=== PATIENT | female | born 1945 | race American Indian/Alaskan Native ===

== ENCOUNTER 2021-06-13 16:03 | Observation (INO) | payer MEDICARE ==
--- NOTE | 2021-06-13 16:21 | Emergency Department Report ---
HPI - General Chief Complaint: Neuro Symptoms/Deficit Time Seen by Provider: 06/13/21 16:05 - HPI HPI: This is a 75-year-old -[place] female presents to the emergency department via EMS with altered mental status that started about 1450. The vianey ent was eating food when suddenly she dropped her arm, became nonverbal, and had some bluish hue around her lips. Family immediately called EMS. Patient did not appear to have any other signs of respiratory distress and the bluish skin color changes have resolved. However the patient remains nonverbal. She had a normal Accu-Chek in route. She has a past medical history that includes previous CVA with residual left-sided deficits, MS causing her to be wheelchair- bound, hypertension, CHF, diabetes. She has not been given anything for her symptoms prior to presentation today. ED Review of Systems ROS: Stated complaint: ALTERED MENTAL STATUS Other details as noted in HPI Comment: Unobtainable due to pts medical conditions Physical Exam - Physical Exam Physical Exam: GENERAL: The patient is ill-appearing. HENT: Normocephalic. Atraumatic. Patient has moist mucous membranes. EYES: Extraocular motions are intact. Pupils equal reactive to light bilat erally. NECK: Supple. Trachea is midline. CHEST/LUNGS: Clear to auscultation. There is no respiratory distress noted. HEART/CARDIOVASCULAR: Regular. There is no tachycardia. There is no murmur. ABDOMEN: Abdomen is soft, nontender. Patient has normal bowel sounds. There is no abdominal distention. SKIN: Skin is warm and dry. NEURO: The patient is awake and cooperative. The patient follows commands. Patient is nonverbal. There is bilateral upper extremity pronator drift but she is able to keep the arms above the gurney. There is no movement against gravity to the bilateral lower extremities. MUSCULOSKELETAL: There is no tenderness or deformity. ED Medical Decision Making - Lab Data Result diagrams: 06/13/21 16:41 06/13/21 16:41 Lab Results 06/13/21 06/13/21 06/13/21 Range/Units 16:41 16:41 16:41 WBC 4.2 L (4.5-11.0) K/mm3 RBC 4.03 (3.65-5.03) M/mm3 Hgb 10.8 (10.1-14.3) gm/dl Hct 34.2 (30.3-42.9) % MCV 85 (79-97) fl MCH 27 L (28-32) pg MCHC 32 (30-34) % RDW 17.5 H (13.2-15.2) % Plt Count 188 (140-440) K/mm3 Lymph % (Auto) 33.6 (13.4-35.0) % [place] % (Auto) 8.6 H (0.0-7.3) % Eos % (Auto) 2.3 (0.0-4.3) % Baso % (Auto) 0.4 (0.0-1.8) % Lymph # (Auto) 1.4 (1.2-5.4) K/mm3 [place] # (Auto) 0.4 (0.0-0.8) K/mm3 Eos # (Auto) 0.1 (0.0-0.4) K/mm3 Baso # (Auto) 0.0 (0.0-0.1) K/mm3 Seg Neutrophils % 55.1 (40.0-70.0) % Seg Neutrophils # 2.3 (1.8-7.7) K/mm3 PT 18.4 H (12.2-14.9) Sec. INR 1.38 H (0.87-1.13) APTT 26.5 (24.2-36.6) Sec. Thrombin Time 18.2 (15.1-19.6) Sec. Sodium 137 (137-145) mmol/L Potassium 4.7 (3.6-5.0) mmol/L Chloride 104.4 (98-107) mmol/L Carbon Dioxide 24 (22-30) mmol/L Anion Gap 13 mmol/L BUN 13 (7-17) mg/dL Creatinine 0.7 (0.6-1.2) mg/dL Estimated GFR > 60 ml/min BUN/Creatinine Ratio 19 % Glucose 174 H (65-100) mg/dL Calcium 8.3 L (8.4-10.2) mg/dL Total Bilirubin 0.20 (0.1-1.2) mg/dL AST 38 (5-40) units/L ALT 16 (7-56) units/L Alkaline Phosphatase 38 (35-129) units/L Ammonia (25-60) umol/L Total Creatine Kinase 115 (30-135) units/L CK-MB (CK-2) 1.0 (0.0-4.0) ng/mL CK-MB (CK-2) Rel Index 0.8 (0-4) Troponin T < 0.010 (0.00-0.029) ng/mL Total Protein 6.1 L (6.3-8.2) g/dL Albumin 2.8 L (3.9-5) g/dL Albumin/Globulin Ratio 0.8 % Blood Type Antibody Screen 06/13/21 06/13/21 Range/Units 16:41 17:50 WBC (4.5-11.0) K/mm3 RBC (3.65-5.03) M/mm3 Hgb (10.1-14.3) gm/dl Hct (30.3-42.9) % MCV (79-97) fl MCH (28-32) pg MCHC (30-34) % RDW (13.2-15.2) % Plt Count (140-440) K/mm3 Lymph % (Auto) (13.4-35.0) % [place] % (Auto) (0.0-7.3) % Eos % (Auto) (0.0-4.3) % Baso % (Auto) (0.0-1.8) % Lymph # (Auto) (1.2-5.4) K/mm3 [place] # (Auto) (0.0-0.8) K/mm3 Eos # (Auto) (0.0-0.4) K/mm3 Baso # (Auto) (0.0-0.1) K/mm3 Seg Neutrophils % (40.0-70.0) % Seg Neutrophils # (1.8-7.7) K/mm3 PT (12.2-14.9) Sec. INR (0.87-1.13) APTT (24.2-36.6) Sec. Thrombin Time (15.1-19.6) Sec. Sodium (137-145) mmol/L Potassium (3.6-5.0) mmol/L Chloride (98-107) mmol/L Carbon Dioxide (22-30) mmol/L Anion Gap mmol/L BUN (7-17) mg/dL Creatinine (0.6-1.2) mg/dL Estimated GFR ml/min BUN/Creatinine Ratio % Glucose (65-100) mg/dL Calcium (8.4-10.2) mg/dL Total Bilirubin (0.1-1.2) mg/dL AST (5-40) units/L ALT (7-56) units/L Alkaline Phosphatase (35-129) units/L Ammonia 25.0 (25-60) umol/L Total Creatine Kinase (30-135) units/L CK-MB (CK-2) (0.0-4.0) ng/mL CK-MB (CK-2) Rel Index (0-4) Troponin T (0.00-0.029) ng/mL Total Protein (6.3-8.2) g/dL Albumin (3.9-5) g/dL Albumin/Globulin Ratio % Blood Type B POSITIVE Antibody Screen Negative - EKG Data -: EKG Interpreted by Ar EKG shows normal: sinus rhythm, axis, intervals, QRS complexes, ST-T waves Rate: normal - EKG Data When compared to previous EKG there are: previous EKG unavailable Interpretation: normal EKG - Radiology Data Radiology results: report reviewed CT head/brain wo con INDICATION / CLINICAL INFORMATION: 75 years Female; AMS. TECHNIQUE: Routine CT head without contrast. All CT scans at this location are performed using CT dose reduction for ALARA by means of automated exposure control. COMPARISON: None. FINDINGS: BRAIN / INTRACRANIAL CONTENTS: Old, moderately sized branch PICA infarct seen on the left. Old, branch MCA infarct seen in the anterior aspect of the inferior parietal lobule on the right. This finding also involves the posterior insular cortex in the adjacent gangliocapsular region. Otherwise, no acute hemorrhage, mass effect, midline shift, hydrocephalus, or acute, large territorial infarct. Moderate, diffuse cerebral and cerebellar atrophy. Moderate degree of hippocampal atrophy suggested bilaterally. There are areas of decreased attenuation in the white matter of the cerebral hemispheres. These are nonspecific findings and may be related to microangiopathy (hypertension, diabetes, atherosclerosis), given the patient's age. It might be difficult to evaluate for small areas of ischemia without diffusion imaging by MRI. CRANIOCERVICAL JUNCTION: No significant abnormality. ORBITS: No significant abnormality of visualized orbits. SINUSES / MASTOIDS: Mucous retention cyst/polyp is seen in the left maxillary antrum. ADDITIONAL FINDINGS: Atherosclerotic disease is seen in the anterior circulation. IMPRESSION: 1. No focal mass, hemorrhage, hydrocephalus, or acute, large territorial infarct. Follow-up with diffusion imaging by MRI, as clinically warranted. CT angio neck INDICATION / CLINICAL INFORMATION: 75 years Female; AMS, code stroke. TECHNIQUE: Thin cut axial images obtained through the head during IV bolus contrast administration. Sagittal, coronal, and 3 plane MIP reconstructions performed by the technologist. NASCET type criteria used evaluate stenoses. All CT scans at this location are performed using CT dose reduction for ALARA by means of automated exposure control. . COMPARISON: None available. FINDINGS: ARCH: Normal aortic arch branching suggested. CAROTID ARTERIES: The visualized common and internal carotid arteries are widely patent. VERTEBRAL ARTERIES: Codominant vertebral system seen. No significant stenosis appreciated. ADDITIONAL FINDINGS: Disc space narrowing seen at C5-6. There is osseous foraminal narrowing bilaterally at this level from uncinate hypertrophy. Mild canal narrowing at this level. Poor dentition noted. Port-A-Cath noted on the right. IMPRESSION: No significant stenosis appreciated on this CTA of the neck. CT angio head INDICATION / CLINICAL INFORMATION: 75 years Female; AMS, code stroke. TECHNIQUE: Thin cut axial images obtained through the head during IV bolus contrast administration. Sagittal, coronal, and 3 plane MIP reconstructions performed by the technologist. NASCET type criteria used evaluate stenoses. Automated exposure control utilized for radiation reduction purposes. . COMPARISON: None available. FINDINGS: INTERNAL CAROTID ARTERIES: No significant narrowing appreciated. Very little atherosclerosis present. VERTEBROBASILAR SYSTEM: No significant narrowing appreciated. DISTAL BRANCHES: Distal branches of the anterior, middle, and posterior cerebral arteries are chyna rly symmetric in appearance and number. ANEURYSM: None identified. ADDITIONAL FINDINGS: Remainder of the surrounding soft tissues are grossly normal. IMPRESSION: No signs of large vessel occlusion on this exam. No significant narrowing appreciated. - Medical Decision Making This patient presents to the emergency department for evaluation of altered mental status or CVA after she suddenly went nonverbal a little before 3 PM. She was in the middle of eating food when she dropped her utensil, stopped responding and stopped talking. Upon arrival to the emergency department the patient is awake and is cooperative, but she remains nonverbal. The patient does have a history of multiple sclerosis and a previous CVA with some left-sided residual deficits. A code stroke was initiated. She was seen by the telemedicine neurologist, Dr. Rubin, who gave her an NIH stroke scale of 19. However she felt that the patient's symptoms are not definitively from CVA and this could be metabolic encephalopathy versus progression of her MS versus other. Therefore the recommendation was to not give TPA. She had a CT scan of the head without contrast that did not show any hemorrhage, large vessel occlusion, or any other acute process. The patient then had CT angiography studies of the head and neck that also did not show any large vessel occlusion, stenosis, or any other acute process. Labs have been mostly unremarkable thus far including CBC, metabolic panel, negative troponin, normal ammonia level. We are waiting for a urinalysis and thyroid function. The patient will be admitted to the hospital for further evaluation and treatment and was accepted for admission by the hospitalist, Dr. Amezquita. Critical Care Time: Yes Critical care time in (mins) excluding proc time.: 35 Critical care attestation.: If time is entered above; I have spent that time in minutes in the direct care of this critically ill patient, excluding procedure time. Critical care time spent on this patient in doing her initial evaluation, multiple reevaluations, ordering and interpretation of labs and imaging, discussion with the telemedicine neurologist, and discussion with the hospitalist service. Critical Care Time: 35 minutes ED Disposition Clinical Impression: CVA (cerebral vascular accident) Qualifiers: CVA mechanism: unspecified Qualified Code(s): I63.9 - Cerebral infarction, unspecified Disposition: 09 ADMITTED INPATIENT Is pt being admited?: Yes Condition: Serious Time of Disposition: 18:23
--- NOTE | 2021-06-13 16:40 | Emergency Department Report ---
Blank Doc - Documentation Documentation: [facility] Consult Note # Demographics Consult Type: Acute Stroke Level 1 (0-4.5 hrs) Patient Location: Emergency Room First Name: Pat Last Name: Yunior Date of : 1945 Age: 75 Gender: Female Facility: [facility] Time of Initial Page ( Time): 06/13/2021, 16:06 Time of Return Call ( Time): 06/13/2021, 16:06 # HPI History: pt was at home around 1320 MST and stopped speaking. # Scores Time of exam and NIHSS ( Time): 06/13/2021, 16:11 Level of Consciousness 1a: [0] = Alert; keenly responsive LOC Questions 1b: [2] = Answers neither correctly LOC Commands 1c: [2] = Performs neither correctly Best Gaze 2: [0] = Normal Visual 3: [0] = No visual loss Facial Palsy 4: [0] = Normal symmetrical movements Motor Arm Left 5a: [2] = Some effort against gravity Motor Arm Right 5b: [2] = Some effort against gravity Motor Leg Left 6a: [3] = No effort against gravity Motor Leg Right 6b: [3] = No effort against gravity Limb Ataxia 7: [0] = Absent Sensory 8: [0] = Normal Best Language 9: [3] = Mute Dysarthria 10: [2] = Severe dysarthria Extinction and Inattention 11: [0] = No abnormality NIHSS Total: 19 # PMH-FH-SH Past Medical History: cancer congestive heart failure Diabetes hypertension Social History: non-ambulatory at baseline # Data Glucose: within normal limits # Assessment Impression: Altered Mental Status # Plan Thrombolytic/Intervention: NOT IV Thrombolysis or IA Intervention candidate Intraarterial Exclusion: poor functional baseline Thrombolytic/Intraarterial Exclusion: IV thrombolytic and IA intervention considered but not recommended as this patient's symptoms are not clinically consistent with an assumed diagnosis of stroke Imaging: (urgency: STAT): CT Angiogram Head and CT Angiogram Neck AND call back with results if abnormal Additional Recommendations: Metabolic and infectious evaluation. If no cause found then MRI brain for further eval is reasonable # Logistics Telemedicine: Interactive 2 way audio and visual telecommunication technology was utilized during this visit
[2021-06-13 16:52] LABS: Basophils % (Auto) 0.4 % (0.0-1.8); Eosinophils # (Auto) 0.1 K/mm3 (0.0-0.4); Eosinophils % (Auto) 2.3 % (0.0-4.3); Hematocrit 34.2 % (30.3-42.9); Hemoglobin 10.8 gm/dl (10.1-14.3); Lymphocytes # (Auto) 1.4 K/mm3 (1.2-5.4); Lymphocytes % (Auto) 33.6 % (13.4-35.0); Mean Corpuscular HGB Conc 32 % (30-34); Mean Corpuscular Volume 85 fl (79-97); Monocytes # (Auto) 0.4 K/mm3 (0.0-0.8); Monocytes % (Auto) 8.6 % (0.0-7.3); Platelet Count 188 K/mm3 (140-440); Red Blood Count 4.03 M/mm3 (3.65-5.03); Red Cell Distribution Width 17.5 % (13.2-15.2)
[2021-06-13 17:10] LABS: Alanine Aminotransferase 16 units/L (7-56); Albumin 2.8 g/dL (3.9-5); Blood Urea Nitrogen 13 mg/dL (7-17); Calcium 8.3 mg/dL (8.4-10.2); Hemolysis Index 276
[2021-06-13 17:13] LABS: BUN/Creatinine Ratio 19
--- NOTE | 2021-06-13 17:16 | Cat Scan Report ---
CT head/brain wo con INDICATION / CLINICAL INFORMATION: 75 years Female; AMS. TECHNIQUE: Routine CT head without contrast. All CT scans at this location are performed using CT dos e reduction for ALARA by means of automated exposure control. COMPARISON: None. FINDINGS: BRAIN / INTRACRANIAL CONTENTS: Old, moderately sized branch PICA infarct seen on the left. Old, branc h MCA infarct seen in the anterior aspect of the inferior parietal lobule on the right. This finding also involves the posterior insular cortex in the adjacent gangliocapsular region. Otherwise, no acute hemorrhage, mass effect, midline shift, hydrocephalus, or acute, large territori al infarct. Moderate, diffuse cerebral and cerebellar atrophy. Moderate degree of hippocampal atrophy suggested b ilaterally. There are areas of decreased attenuation in the white matter of the cerebral hemispheres. These are n onspecific findings and may be related to microangiopathy (hypertension, diabetes, atherosclerosis), given the patient's age. It might be difficult to evaluate for small areas of ischemia without diffus ion imaging by MRI. CRANIOCERVICAL JUNCTION: No significant abnormality. ORBITS: No significant abnormality of visualized orbits. SINUSES / MASTOIDS: Mucous retention cyst/polyp is seen in the left maxillary antrum. ADDITIONAL FINDINGS: Atherosclerotic disease is seen in the anterior circulation. IMPRESSION: 1. No focal mass, hemorrhage, hydrocephalus, or acute, large territorial infarct. Follow-up with diff usion imaging by MRI, as clinically warranted. CODE STROKE: Exam Completed (QUILL REAMER/CDT): 06/13/2021 403 PM Exam Reviewed (QUILL REAMER/CDT): 4:09 PM Time of Communication (QUILL REAMER/CDT): 4:11 PM Licensed Practitioner Receiving Report: Dr. Merida Signer Name: Keith García MD, III Signed: 06/13/2021 5:11 PM Workstation Name: [facility]Generate[place] [id number]
[2021-06-13 17:46] LABS: INR 1.38 (0.87-1.13)
[2021-06-13 17:47] LABS: Partial Thromboplastin Time 26.5 Sec. (24.2-36.6); Thrombin Time 18.2 Sec. (15.1-19.6)
--- NOTE | 2021-06-13 19:15 | History and Physical Report ---
History of Present Illness Date of examination: 06/13/21 Date of admission: 06/13/21 18:23 Chief complaint: Chest pain for 4 days History of present illness: 75-year-old female presents with altered sensorium since 1450 hrs. Family at bedside. Patient has a history of multiple sclerosis and cerebrovascular accident with left-sided weakness. As per son patient is dependent on him for ADLs. Cannot walk because of the left-sided weakness. Apparently he feels well with BX and help her in using the bedside commode for the last few years. Patient apparently became nonverbal with altered sensorium for 20 minutes and returned back to baseline. During my examination patient was able to exam answer questions about time and place. Responsive and at baseline during my examination. No new focal deficits. Patient has left-sided weakness on the left upper extremity and left lower extremity due to a stroke on the right side and history of multiple sclerosis since mid . No fever or chills. Past History Past Medical History: hypertension, stroke, other (Multiple sclerosis) Past Surgical History: mastectomy, Other (Endometrial cancer, breast cancer permanent pacemaker) Social history: lives with family, full code Family history: hypertension Review of systems Constitutional no weight loss or weight gain no fever or chills HEENT no sore throat no post nasal drip no diplopia Neck no neck stiffness no lymph gland enlargement Chest and lungs no shortness of breath cough or wheezing CVS no chest pain no diaphoresis no palpitations GI no nausea no vomiting no diarrhea Genitourinary system no dysuria no flank pain Musculoskeletal system no muscle pains no joint pains 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 for 20 minutes Skin no rash no itching Psychiatric no depression no homicidal or suicidal tendencies Hematologic no lymphedema or bruising Endocrine no polydipsia no polyuria no cold intolerance no heat intolerance Past History Past Medical History: hypertension, stroke, other (Multiple sclerosis) Past Surgical History: mastectomy, Other (Endometrial cancer, breast cancer permanent pacemaker) Social history: lives with family, full code Family history: hypertension Medications and Allergies Allergies Allergy/AdvReac Type Severity Reaction Status Date / Time beef derived (bovine) Allergy Itching Verified 06/14/21 02:12 milk Allergy Itching Verified 06/14/21 02:12 Milk Containing Products Allergy Itching Verified 06/14/21 02:12 Penicillins Allergy Itching Verified 06/14/21 02:12 Home Medications Medication Instructions Recorded Confirmed Last Taken Type Unobtainable 06/14/21 06/14/21 Unknown History Exam - Constitutional Vitals: Temp Pulse Resp BP Pulse Ox 98.6 F 74 17 140/68 99 06/13/21 16:04 06/13/21 16:45 06/13/21 16:45 06/13/21 16:45 06/13/21 16:45 General appearance: Present: no acute distress, well-nourished - EENT Eyes: Present: PERRL ENT: hearing intact, clear oral mucosa - Neck Neck: Present: supple, normal ROM - Respiratory Respiratory effort: normal Respiratory: bilateral: CTA - Cardiovascular Heart rate: 78 Rhythm: regular Heart Sounds: Present: S1 & S2. Absent: rub, click - Extremities Extremities: pulses symmetrical, No edema Peripheral Pulses: within normal limits - Abdominal General gastrointestinal: Present: soft, non-tender, non-distended, normal bowel sounds Female genitourinary: Present: normal - Integumentary Integumentary: Present: clear, warm, dry - Musculoskeletal Musculoskeletal: left sided weakness - Psychiatric Psychiatric: appropriate mood/affect, intact judgment & insight - Neurologic Neurologic: CNII-XII intact, focal deficits (Left hemiplegia) HEART Score - HEART Score History: Highly suspicious EKG: Non-specific Age: > 65 Risk factors: 1-2 risk factors Troponin: Troponin T < 0.010 ng/mL (0.00-0.029) 06/13/21 16:41 Troponin: < normal limit HEART Score: 6 - Critical Actions Critical Actions: 0-3 pts:0.9-1.7%risk of adverse cardiac event.Candidate for discharge Results - Labs CBC & Chem 7: 06/14/21 05:08 06/14/21 05:08 Labs: Laboratory Last Values WBC 4.2 K/mm3 (4.5-11.0) L 06/13/21 16:41 RBC 4.03 M/mm3 (3.65-5.03) 06/13/21 16:41 Hgb 10.8 gm/dl (10.1-14.3) 06/13/21 16:41 Hct 34.2 % (30.3-42.9) 06/13/21 16:41 MCV 85 fl (79-97) 06/13/21 16:41 MCH 27 pg (28-32) L 06/13/21 16:41 MCHC 32 % (30-34) 06/13/21 16:41 RDW 17.5 % (13.2-15.2) H 06/13/21 16:41 Plt Count 188 K/mm3 (140-440) 06/13/21 16:41 Lymph % (Auto) 33.6 % (13.4-35.0) 06/13/21 16:41 [place] % (Auto) 8.6 % (0.0-7.3) H 06/13/21 16:41 Eos % (Auto) 2.3 % (0.0-4.3) 06/13/21 16:41 Baso % (Auto) 0.4 % (0.0-1.8) 06/13/21 16:41 Lymph # (Auto) 1.4 K/mm3 (1.2-5.4) 06/13/21 16:41 [place] # (Auto) 0.4 K/mm3 (0.0-0.8) 06/13/21 16:41 Eos # (Auto) 0.1 K/mm3 (0.0-0.4) 06/13/21 16:41 Baso # (Auto) 0.0 K/mm3 (0.0-0.1) 06/13/21 16:41 Seg Neutrophils % 55.1 % (40.0-70.0) 06/13/21 16:41 Seg Neutrophils # 2.3 K/mm3 (1.8-7.7) 06/13/21 16:41 PT 18.4 Sec. (12.2-14.9) H 06/13/21 16:41 INR 1.38 (0.87-1.13) H 06/13/21 16:41 APTT 26.5 Sec. (24.2-36.6) 06/13/21 16:41 Thrombin Time 18.2 Sec. (15.1-19.6) 06/13/21 16:41 Sodium 137 mmol/L (137-145) 06/13/21 16:41 Potassium 4.7 mmol/L (3.6-5.0) 06/13/21 16:41 Chloride 104.4 mmol/L (98-107) 06/13/21 16:41 Carbon Dioxide 24 mmol/L (22-30) 06/13/21 16:41 Anion Gap 13 mmol/L 06/13/21 16:41 BUN 13 mg/dL (7-17) 06/13/21 16:41 Creatinine 0.7 mg/dL (0.6-1.2) 06/13/21 16:41 Estimated GFR > 60 ml/min 06/13/21 16:41 BUN/Creatinine Ratio 19 % 06/13/21 16:41 Glucose 174 mg/dL (65-100) H 06/13/21 16:41 Calcium 8.3 mg/dL (8.4-10.2) L 06/13/21 16:41 Total Bilirubin 0.20 mg/dL (0.1-1.2) 06/13/21 16:41 AST 38 units/L (5-40) 06/13/21 16:41 ALT 16 units/L (7-56) 06/13/21 16:41 Alkaline Phosphatase 38 units/L (35-129) 06/13/21 16:41 Ammonia 25.0 umol/L (25-60) 06/13/21 17:50 Total Creatine Kinase 115 units/L (30-135) 06/13/21 16:41 CK-MB (CK-2) 1.0 ng/mL (0.0-4.0) 06/13/21 16:41 CK-MB (CK-2) Rel Index 0.8 (0-4) 06/13/21 16:41 Troponin T < 0.010 ng/mL (0.00-0.029) 06/13/21 16:41 Total Protein 6.1 g/dL (6.3-8.2) L 06/13/21 16:41 Albumin 2.8 g/dL (3.9-5) L 06/13/21 16:41 Albumin/Globulin Ratio 0.8 % 06/13/21 16:41 TSH 2.510 mlU/mL (0.270-4.200) 06/13/21 17:50 Blood Type B POSITIVE 06/13/21 16:41 Antibody Screen Negative 06/13/21 16:41 - Imaging and Cardiology Imaging and Cardiology: Head CT no focal mass hemorrhage hydrocephalus or acute large territorial infarct Assessment and Plan Advance Directives: Yes (Full code) VTE prophylaxis?: Chemical Plan of care discussed with patient/family: Yes - Patient Problems (1) TIA (transient ischemic attack) Current Visit: Yes Status: Acute Plan to address problem: TIA Work-up Neurology consult Carotid duplex scan and echocardiogram Patient can be discharged tomorrow. Patient is at baseline (2) CVA (cerebral vascular accident) Current Visit: Yes Status: Chronic Qualifiers: CVA mechanism: thrombosis Precerebral and cerebral artery: middle cerebral artery Laterality of affected vessel: right Qualified Code(s): I63.311 - Cerebral infarction due to thrombosis of right middle cerebral artery Plan to address problem: Patient has left hemiplegia Not amenable to physical therapy or occupational therapy (3) Malnutrition Current Visit: Yes Status: Chronic Qualifiers: Protein-calorie malnutrition severity: moderate Plan to address problem: Dietary supplements and dietitian consult (4) DVT prophylaxis Current Visit: Yes Status: Acute Plan to address problem: On heparin and GI prophylaxis (5) Advanced directives, counseling/discussion Current Visit: Yes Status: Acute Plan to address problem: This education collected, care plan discussed, diagnosis discussed, prognosis discussed, patient acknowledges understanding and agrees with care plan. +30 minutes.
[2021-06-13] MEDS ORDERED: oxyCODONE /ACETAMINOPHEN 5-325MG TAB PO PRN (20:06)
[2021-06-13] MEDS ORDERED: ACETAMINOPHEN 325 MG TAB PO PRN (20:06)
[2021-06-13] MEDS ORDERED: ONDANSETRON 4 MG/2 ML INJ IV PRN (20:06)
[2021-06-13] MEDS ORDERED: METOCLOPRAMIDE 10 MG/2 ML INJ IV PRN (20:06)
[2021-06-14] MEDS: FAMOTIDINE 20 MG/2 ML INJ IV SCH ×3 (00:36→22:21)
[2021-06-14] MEDS: SODIUM CHLORIDE 0.9% 1000 ML 1,000 ML IV SCH ×2 (00:36→15:28)
[2021-06-14] MEDS: HEPARIN 5,000 UNIT/1 ML VIAL SUB-Q SCH ×3 (00:37→22:21)
[2021-06-14 06:28] LABS: Basophils % (Auto) 0.2 % (0.0-1.8); Eosinophils # (Auto) 0.1 K/mm3 (0.0-0.4); Eosinophils % (Auto) 0.9 % (0.0-4.3); Hematocrit 37.1 % (30.3-42.9); Hemoglobin 11.9 gm/dl (10.1-14.3); Lymphocytes # (Auto) 1.5 K/mm3 (1.2-5.4); Lymphocytes % (Auto) 18.8 % (13.4-35.0); Mean Corpuscular HGB Conc 32 % (30-34); Mean Corpuscular Volume 84 fl (79-97); Monocytes # (Auto) 0.5 K/mm3 (0.0-0.8); Monocytes % (Auto) 6.6 % (0.0-7.3); Platelet Count 222 K/mm3 (140-440); Red Blood Count 4.43 M/mm3 (3.65-5.03); Red Cell Distribution Width 16.6 % (13.2-15.2)
[2021-06-14 07:02] LABS: Alanine Aminotransferase 16 units/L (7-56); Albumin 3.3 g/dL (3.9-5); Blood Urea Nitrogen 11 mg/dL (7-17); Calcium 8.9 mg/dL (8.4-10.2); Chol/HDL Ratio 1.92 %; HDL Cholesterol 65 mg/dL (40-59); Hemolysis Index 6; LDL Cholesterol,Direct 50 mg/dL (50-130)
[2021-06-14 07:05] LABS: BUN/Creatinine Ratio 22
[2021-06-14] MEDS ORDERED: POTASSIUM CHLORIDE ER 20 MEQ TAB PO ONE (08:51)
--- NOTE | 2021-06-14 08:51 | Progress Note ---
Assessment and Plan Assessment and plan: History of present illness: 75-year-old female presents with altered sensorium since 1450 hrs. Family at bedside. Patient has a history of multiple sclerosis and cerebrovascular accident with left-sided weakness. As per son patient is dependent on him for ADLs. Cannot walk because of the left-sided weakness. Apparently he feels well with BX and help her in using the bedside commode for the last few years. Patient apparently became nonverbal with altered sensorium for 20 minutes and returned back to baseline. During my examination patient was able to exam answer questions about time and place. Responsive and at baseline during my examination. No new focal deficits. Patient has left-sided weakness on the left upper extremity and left lower extremity due to a stroke on the right side and history of multiple sclerosis since mid . No fever or chills. Hospital Course to date: 06/14: Awaiting neuro input. Carotid duplex and echo pending. Assessment and Plan: (1) TIA (transient ischemic attack) TIA Work-up Neurology consult Carotid duplex scan echocardiogram Patient can be discharged tomorrow. Patient is at baseline (2) CVA (cerebral vascular accident) Patient has left hemiplegia Dependent, Not amenable to physical therapy or occupational therapy (3) Malnutrition Dietary supplements and dietitian consult (4) DVT prophylaxis On heparin and GI prophylaxis (5) Advanced directives, counseling/discussion This education collected, care plan discussed, diagnosis discussed, prognosis discussed, patient acknowledges understanding and agrees with care plan. +30 minutes. History Interval history: improving in symptoms. Aox3. no acute complants on encounter. Hospitalist Physical - Physical exam Narrative exam: General appearance: Present: no acute distress, well-nourished - EENT Eyes: Present: PERRL ENT: hearing intact, clear oral mucosa - Neck Neck: Present: supple, normal ROM - Respiratory Respiratory effort: normal Respiratory: bilateral: CTA - Cardiovascular Heart rate: 78 Rhythm: regular Heart Sounds: Present: S1 & S2. Absent: rub, click - Extremities Extremities: pulses symmetrical, No edema Peripheral Pulses: within normal limits - Abdominal General gastrointestinal: Present: soft, non-tender, non-distended, normal bowel sounds Female genitourinary: Present: normal - Integumentary Integumentary: Present: clear, warm, dry - Musculoskeletal Musculoskeletal: left sided weakness - Psychiatric Psychiatric: appropriate mood/affect, intact judgment & insight - Neurologic Neurologic: CNII-XII intact, focal deficits (Left hemiplegia) - Constitutional Vitals: Temp Pulse Resp BP Pulse Ox 98.5 F 65 16 120/59 96 06/14/21 04:37 06/14/21 04:37 06/14/21 04:37 06/14/21 04:37 06/14/21 06:45 General appearance: Present: no acute distress, well-nourished HEART Score - HEART Score EKG: Non-specific Age: > 65 Risk factors: 1-2 risk factors Troponin: Troponin T < 0.010 ng/mL (0.00-0.029) 06/13/21 16:41 Troponin: < normal limit - Critical Actions Critical Actions: 0-3 pts:0.9-1.7%risk of adverse cardiac event.Candidate for discharge Results - Labs CBC & Chem 7: 06/14/21 05:08 06/14/21 05:08 Labs: Laboratory Last Values WBC 8.2 K/mm3 (4.5-11.0) 06/14/21 05:08 RBC 4.43 M/mm3 (3.65-5.03) 06/14/21 05:08 Hgb 11.9 gm/dl (10.1-14.3) 06/14/21 05:08 Hct 37.1 % (30.3-42.9) 06/14/21 05:08 MCV 84 fl (79-97) 06/14/21 05:08 MCH 27 pg (28-32) L 06/14/21 05:08 MCHC 32 % (30-34) 06/14/21 05:08 RDW 16.6 % (13.2-15.2) H 06/14/21 05:08 Plt Count 222 K/mm3 (140-440) 06/14/21 05:08 Lymph % (Auto) 18.8 % (13.4-35.0) 06/14/21 05:08 [place] % (Auto) 6.6 % (0.0-7.3) 06/14/21 05:08 Eos % (Auto) 0.9 % (0.0-4.3) 06/14/21 05:08 Baso % (Auto) 0.2 % (0.0-1.8) 06/14/21 05:08 Lymph # (Auto) 1.5 K/mm3 (1.2-5.4) 06/14/21 05:08 [place] # (Auto) 0.5 K/mm3 (0.0-0.8) 06/14/21 05:08 Eos # (Auto) 0.1 K/mm3 (0.0-0.4) 06/14/21 05:08 Baso # (Auto) 0.0 K/mm3 (0.0-0.1) 06/14/21 05:08 Seg Neutrophils % 73.5 % (40.0-70.0) H 06/14/21 05:08 Seg Neutrophils # 6.0 K/mm3 (1.8-7.7) 06/14/21 05:08 PT 18.4 Sec. (12.2-14.9) H 06/13/21 16:41 INR 1.38 (0.87-1.13) H 06/13/21 16:41 APTT 26.5 Sec. (24.2-36.6) 06/13/21 16:41 Thrombin Time 18.2 Sec. (15.1-19.6) 06/13/21 16:41 Sodium 143 mmol/L (137-145) 06/14/21 05:08 Potassium 3.2 mmol/L (3.6-5.0) L D 06/14/21 05:08 Chloride 106.0 mmol/L (98-107) 06/14/21 05:08 Carbon Dioxide 25 mmol/L (22-30) 06/14/21 05:08 Anion Gap 15 mmol/L 06/14/21 05:08 BUN 11 mg/dL (7-17) 06/14/21 05:08 Creatinine 0.5 mg/dL (0.6-1.2) L 06/14/21 05:08 Estimated GFR > 60 ml/min 06/14/21 05:08 BUN/Creatinine Ratio 22 % 06/14/21 05:08 Glucose 67 mg/dL (65-100) 06/14/21 05:08 POC Glucose 63 mg/dL (70-105) L 06/14/21 08:14 Calcium 8.9 mg/dL (8.4-10.2) 06/14/21 05:08 Total Bilirubin 0.30 mg/dL (0.1-1.2) 06/14/21 05:08 AST 19 units/L (5-40) 06/14/21 05:08 ALT 16 units/L (7-56) 06/14/21 05:08 Alkaline Phosphatase 53 units/L (35-129) 06/14/21 05:08 Ammonia 25.0 umol/L (25-60) 06/13/21 17:50 Total Creatine Kinase 115 units/L (30-135) 06/13/21 16:41 CK-MB (CK-2) 1.0 ng/mL (0.0-4.0) 06/13/21 16:41 CK-MB (CK-2) Rel Index 0.8 (0-4) 06/13/21 16:41 Troponin T < 0.010 ng/mL (0.00-0.029) 06/13/21 16:41 Total Protein 6.5 g/dL (6.3-8.2) 06/14/21 05:08 Albumin 3.3 g/dL (3.9-5) L 06/14/21 05:08 Albumin/Globulin Ratio 1.0 % 06/14/21 05:08 Triglycerides 49 mg/dL (2-149) 06/14/21 05:08 Cholesterol 125 mg/dL (50-199) 06/14/21 05:08 LDL Cholesterol Direct 50 mg/dL (50-130) 06/14/21 05:08 HDL Cholesterol 65 mg/dL (40-59) H 06/14/21 05:08 Cholesterol/HDL Ratio 1.92 % 06/14/21 05:08 TSH 2.510 mlU/mL (0.270-4.200) 06/13/21 17:50 Blood Type B POSITIVE 06/13/21 16:41 Antibody Screen Negative 06/13/21 16:41 Louis/IV: Voiding Method Incontinent Active Medications - Current Medications Current Medications: Generic Name Dose Route Start Last Admin Trade Name Freq PRN Reason Stop Dose Admin Acetaminophen 650 mg 06/13/21 20:06 Acetaminophen 325 Mg Tab PO Q4H PRN Pain MILD(1-3)/Fever >100.5/SOSA Famotidine 20 mg 06/13/21 22:00 06/14/21 00:36 Famotidine 20 Mg/2 Ml Inj IV 20 mg BID TANESHA Administration Heparin Sodium (Porcine) 5,000 unit 06/13/21 22:00 06/14/21 00:37 Heparin 5,000 Unit/1 Ml Vial SUB-Q 5,000 unit Q12HR TANESHA Administration Sodium Chloride 1,000 mls @ 75 mls/hr 06/13/21 20:15 06/14/21 00:36 Nacl 0.9% 1000 Ml IV 75 mls/hr DIRECT TANESHA Administration Metoclopramide HCl 10 mg 06/13/21 20:06 Metoclopramide 10 Mg/2 Ml Inj IV Q6H PRN Nausea And Vomiting Ondansetron HCl 4 mg 06/13/21 20:06 Ondansetron 4 Mg/2 Ml Inj IV Q3H PRN Nausea And Vomiting Oxycodone/Acetaminophen 1 tab 06/13/21 20:06 Oxycodone /Acetaminophen 5-325mg Tab PO Q6H PRN Pain, Moderate (4-6) Sodium Chloride 10 ml 06/13/21 22:00 06/14/21 00:37 Sodium Chloride 0.9% 10 Ml Flush Syringe IV 10 ml BID TANESHA Administration Sodium Chloride 10 ml 06/13/21 20:06 Sodium Chloride 0.9% 10 Ml Flush Syringe IV PRN PRN LINE FLUSH Sodium Chloride 10 ml 06/13/21 20:20 Sodium Chloride 0.9% 10 Ml Flush Syringe IV PRN PRN LINE FLUSH
--- NOTE | 2021-06-14 09:41 | Electrocardiograph Report ---
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
[2021-06-14] MEDS ORDERED: DEXTROSE 50% IN WATER (25GM) 50 ML SYRINGE IV PRN (19:17)
[2021-06-14] MEDS: INSULIN LISPRO 100 UNIT/ML SUB-Q SCH (22:00)
--- NOTE | 2021-06-15 08:03 | Cat Scan Report ---
CT angio neck INDICATION / CLINICAL INFORMATION: 75 years Female; AMS, code stroke. TECHNIQUE: Thin cut axial images obtained through the head during IV bolus contrast administration. S agittal, coronal, and 3 plane MIP reconstructions performed by the technologist. NASCET type criteria used evaluate stenoses. All CT scans at this location are performed using CT dose reduction for ALAR A by means of automated exposure control. . COMPARISON: None available. FINDINGS: ARCH: Normal aortic arch branching suggested. CAROTID ARTERIES: The visualized common and internal carotid arteries are widely patent. VERTEBRAL ARTERIES: Codominant vertebral system seen. No significant stenosis appreciated. ADDITIONAL FINDINGS: Disc space narrowing seen at C5-6. There is osseous foraminal narrowing bilatera lly at this level from uncinate hypertrophy. Mild canal narrowing at this level. Poor dentition noted. Port-A-Cath noted on the right. IMPRESSION: No significant stenosis appreciated on this CTA of the neck. Signer Name: Keith García MD, III Signed: 06/13/2021 5:24 PM Workstation Name: [id number] [id number]
[2021-06-15] MEDS: INSULIN LISPRO 100 UNIT/ML SUB-Q SCH ×3 (09:59→18:52)
[2021-06-15] MEDS: HEPARIN 5,000 UNIT/1 ML VIAL SUB-Q SCH (10:00)
[2021-06-15] MEDS: FAMOTIDINE 20 MG/2 ML INJ IV SCH (10:00)
--- NOTE | 2021-06-15 12:34 | Discharge Summary ---
Providers - Providers Date of Admission: 06/13/21 18:23 Date of discharge: 06/15/21 Attending physician: MOON BROOKS MD 06/13/21 16:55 Speech Therapy Evaluation and Treat [CONS] Routine Reason For Exam: NPO 06/13/21 20:06 Consult to Physician [CONS] Routine Comment: Consulting Provider: LANCE BARNETT Physician Instructions: Reason For Exam: AMS 06/13/21 20:21 Occupational Therapy Evaluate and Treat [CONS] Routine Comment: Reason For Exam: Neuro deficits Physical Therapy Evaluation and Treat [CONS] Routine Comment: Reason For Exam: Neuro deficits 06/14/21 07:33 Consult to Dietitian/Nutrition [CONS] Routine Physician Instructions: Reason For Exam: Reason for Consult: Pt needs oral supplement Primary care physician: CAR CHECKER Hospitalization Reason for admission: altered mental status Condition: Serious Hospital course: History of present illness: 75-year-old female presents with altered sensorium since 1450 hrs. Family at bedside. Patient has a history of multiple sclerosis and cerebrovascular accident with left-sided weakness. As per son patient is dependent on him for ADLs. Cannot walk because of the left-sided weakness. Apparently he feels well with BX and help her in using the bedside commode for the last few years. Patient apparently became nonverbal with altered sensorium for 20 minutes and returned back to baseline. During my examination patient was able to exam answer questions about time and place. Responsive and at baseline during my examination. No new focal deficits. Patient has left-sided weakness on the left upper extremity and left lower extremity due to a stroke on the right side and history of multiple sclerosis since mid . No fever or chills. Hospital Course to date: 06/14: Awaiting neuro input. Carotid duplex and echo pending. 06/15: Patient remains at baseline. She is dependent so no indication for PT/OT. DME is at house hold and patient states she gets assistance from . MRI could not be completed due to PPM and leg with metal alison. Discharge placed. patient advised to follow up outpatient with her primary care doctor. Assessment and Plan: (1) TIA (transient ischemic attack) TIA Work-up Neurology consult CT brain negative cannot complete mri brain Patient can be discharged tomorrow. Patient is at baseline (2) CVA (cerebral vascular accident) Patient has left hemiplegia Dependent, Not amenable to physical therapy or occupational therapy (3) Malnutrition Dietary supplements and dietitian consult (4) DVT prophylaxis On heparin and GI prophylaxis (5) Advanced directives, counseling/discussion This education collected, care plan discussed, diagnosis discussed, prognosis discussed, patient acknowledges understanding and agrees with care plan. +30 minutes. Disposition: 01 HOME / SELF CARE / HOMELESS Final Discharge Diagnosis (Prints w/discharge instructions): TIA Time spent for discharge: 25 Core Measure Documentation - Palliative Care Palliative Care/ Comfort Measures: Not Applicable - Core Measures Any of the following diagnoses?: stroke - Stroke Discharge Requirements Statin for LDL = or >70 mg/dl on DC: Yes Anticoag for atrial fib/atrial flutter: Not Applicable Antithrombotic for ischemic stroke: Yes Exam - Physical Exam Narrative exam: General appearance: Present: no acute distress, well-nourished - EENT Eyes: Present: PERRL ENT: hearing intact, clear oral mucosa - Neck Neck: Present: supple, normal ROM - Respiratory Respiratory effort: normal Respiratory: bilateral: CTA - Cardiovascular Heart rate: 78 Rhythm: regular Heart Sounds: Present: S1 & S2. Absent: rub, click - Extremities Extremities: pulses symmetrical, No edema Peripheral Pulses: within normal limits - Abdominal General gastrointestinal: Present: soft, non-tender, non-distended, normal bowel sounds Female genitourinary: Present: normal - Integumentary Integumentary: Present: clear, warm, dry - Musculoskeletal Musculoskeletal: left sided weakness - Psychiatric Psychiatric: appropriate mood/affect, intact judgment & insight - Neurologic Neurologic: CNII-XII intact, focal deficits (Left hemiplegia) - Constitutional Vitals: Temp Pulse Resp BP Pulse Ox 98.0 F 64 20 166/88 100 06/15/21 08:19 06/15/21 08:19 06/15/21 08:19 06/15/21 08:19 06/15/21 08:19 Plan Activity: advance as tolerated Weight Bearing Status: Non-Weight Bearing Follow up with: PRIMARY CARE, [Primary Care Provider] - 7 Days Prescriptions: AtorvaSTATin [Lipitor] 40 mg PO QHS 30 Days #30 tab Aspirin EC [Halfprin EC] 81 mg PO QDAY 30 Days #30 tablet.
[2021-06-15 16:54] VITALS: BP 153/83
--- NOTE | 2021-06-16 08:04 | Cat Scan Report ---
CT angio head INDICATION / CLINICAL INFORMATION: 75 years Female; AMS, code stroke. TECHNIQUE: Thin cut axial images obtained through the head during IV bolus contrast administration. S agittal, coronal, and 3 plane MIP reconstructions performed by the technologist. NASCET type criteria used evaluate stenoses. Automated exposure control utilized for radiation reduction purposes. . COMPARISON: None available. FINDINGS: INTERNAL CAROTID ARTERIES: No significant narrowing appreciated. Very little atherosclerosis present. VERTEBROBASILAR SYSTEM: No significant narrowing appreciated. DISTAL BRANCHES: Distal branches of the anterior, middle, and posterior cerebral arteries are fairly symmetric in appearance and number. ANEURYSM: None identified. ADDITIONAL FINDINGS: Remainder of the surrounding soft tissues are grossly normal. IMPRESSION: No signs of large vessel occlusion on this exam. No significant narrowing appreciated. Signer Name: Keith García MD, III Signed: 06/13/2021 5:18 PM Workstation Name: [id number]
== END 2021-06-15 19:30 | disposition home or self-care (01) ==
LOC: ED 16:03 → 4A 18:23
PROVIDERS: ADMIT Internal Medicine; ATTEND Internal Medicine
DX: G45.9 Transient cerebral ischemic attack, unspecified (principal); I63.9 Cerebral infarction, unspecified; E46 Unspecified protein-calorie malnutrition; I11.0 Hypertensive heart disease with heart failure; I50.9 Heart failure, unspecified; E11.9 Type 2 diabetes mellitus without complications; G35 Multiple sclerosis; R29.719 NIHSS score 19; R41.82 Altered mental status, unspecified; R29.818 Other symptoms and signs involving the nervous system; Z86.73 Personal history of transient ischemic attack (TIA), and cerebral infarction without residual deficits; Z68.29 Body mass index [BMI] 29.0-29.9, adult; Z90.49 Acquired absence of other specified parts of digestive tract; Z79.899 Other long term (current) drug therapy; Z98.890 Other specified postprocedural states; Z95.0 Presence of cardiac pacemaker; Z85.9 Personal history of malignant neoplasm, unspecified
CPT/HCPCS: 36415; 70450; 70496; 70498; 80053; 80061; 82140; 82550; 82553; 82962; 84443; 84484; 85025; 85610; 85670; 85730; 86850; 86900; 86901; 92610; 93005; 93306; 96361; 96372; 96374; 96376; 97161; 99291; G0378; J1644; J3490; J7030; Q9967; Q0162